=== PATIENT | male | born 1935 | race Caucasian/White ===

== ENCOUNTER 2016-07-20 06:07 | Day surgery (SDC) | payer MEDICARE, BC ==
--- NOTE | 2016-07-09 16:06 | HP ---
PREOPERATIVE HISTORY AND PHYSICAL: DATE OF PREOPERATIVE HISTORY AND PHYSICAL EXAMINATION: 07/08/16 DATE OF ADMISSION: This patient is scheduled for same-day surgery admission by Dr. العراقي on 07/20/16. ATTENDING SURGEON: Dr. Stevo العراقي (dictated by Colette Johnson NP) CHIEF COMPLAINT: Left inguinal hernia. HISTORY OF PRESENT ILLNESS: The patient is an 81-year-old male, initially evaluated by Dr. العراقي on 04/07/16 for a left inguinal hernia. He was referred by his primary care provider, Dr. Vahe Park. The patient at that time was recovering from a left hip replacement by Dr. Aguirre and was in physical therapy, and therefore, a left inguinal hernia repair was postponed. He returned for followup of the left inguinal hernia with Dr. العراقي on 05/19/16 , and now plans are made for open repair of the left inguinal hernia with mesh as a same-day surgery procedure. The patient denies any associated pain with the left inguinal hernia, he denies any urinary or gastrointestinal symptoms. He denies any signs or symptoms to suggest incarceration or strangulation. He does note a bulge in the area. Dr. العراقي discussed the nature of inguinal hernias and the nature of the surgical repair and the use of mesh, and the relevant risks, benefits, and alternatives, and today I reviewed the expected postoperative care and recovery. The patient has had a chance to ask questions and stated that he understands the information and is satisfied with the answers given to his questions. He will sign surgical consent on the day of surgery. PAST MEDICAL HISTORY: Significant for prosthetic arthroplasty of the left hip; localized osteoarthritis; sleep apnea requiring the use of CPAP; gastroesophageal reflux disease. PAST SURGICAL HISTORY: Left hip replacement in February [address] Aguirre, knee replacement many years ago, and lumbar diskectomy many years ago. MEDICATIONS: 1. Rapaflo 8 mg p.o. daily. 2. Tagamet HB 200 mg b.i.d. p.r.n. 3. Fiber supplement daily. 4. Stool softener daily. 5. Multivitamin daily. 6. Aleve 220 mg two tablets p.o. b.i.d. p.r.n. 7. Gaviscon as needed. 8. Amoxicillin 500 mg 4 pills 2 g one hour before dental or gastrointestinal procedure. ALLERGIES: No known drug allergies. FAMILY HISTORY: No known anesthesia complications, bleeding tendencies, or clotting disorders. SOCIAL HISTORY: He is and lives alone; he has never been a smoker. He drinks one alcoholic beverage per week and denies the use of other substances and exercises routinely. REVIEW OF SYSTEMS: He denies any constitutional symptoms. He denies any cardiovascular symptoms. Denies any history of deep vein thrombosis or pulmonary embolism; denies any respiratory symptoms; denies any history of anesthesia complications; he has a history of GERD which is controlled with medications currently. He denies any chronic constipation; he has frequent urination and is on medication to improve urinary flow; he has primary osteoarthritis of the pelvic region and thigh and is status post prosthetic arthroplasty of the left hip; he exercises daily at the gym and has been in physical therapy; he denies any neurologic symptoms; he denies any bleeding tendencies and does not think that he has ever received a blood transfusion. PHYSICAL EXAMINATION GENERAL SURVEY: The patient is an 81-year-old male, well developed, well nourished, in no acute distress. VITAL SIGNS: Height 70 inches, weight 207 pounds, body mass index 29.7. Blood pressure 92/60, pulse 54 and regular, respiratory rate 16, temperature 98.1 tympanic. HEENT: Benign. BACK: No CVA tenderness. NECK: Supple. No cervical lymphadenopathy. No carotid bruits. LUNGS: Breath sounds bilaterally clear and equal. HEART: Regular rate and rhythm. No murmurs or rubs appreciated. ABDOMEN: Active bowel sounds. Soft, obese, nontender, and nondistended. Palpation reveals no umbilical hernia or other masses or organomegaly. Inguinal as done by Dr. العراقي revealed a moderate reducible nontender left inguinal hernia; testes were normal on palpation without any masses. RECTAL EXAM: Deferred. EXTREMITIES: Warm. There is mild, nonpitting edema both lower extremities. No skin ulcerations. NEUROLOGIC: Alert and oriented x3. Steady gait. SKIN: Warm, dry, intact. IMPRESSION: Left inguinal hernia. PLAN: Same-day surgery admission to Dr. العراقي's service on 07/20/16 , for open repair of left inguinal hernia with mesh. COLETTE ECKENRODE, RESEARCH ANIMAL ATTENDANT CC: Dr. العراقي; Dr. Vahe Park* [id number]/[facility] #: [id number] [place]
[~2016-07-20 06:07] MED LIST: Buffered Lidocaine 1% SYR 3ML* 3 ML/SYR SYRINGE INTRADERM ONE; ceFAZolin 2 GM PREMIX (*) 2 GM/50 ML BAG IVPB ONE
[2016-07-20 06:49] VITALS: BP 125/63
[2016-07-20] MEDS ORDERED: Bupivacaine 0.5% W/EPI SDV* 30 ML VIAL ONE (07:23)
[2016-07-20] MEDS ORDERED: Lidocaine 1% INJ* 10 MG/ML 30 ML SDV ONE (07:23)
== END 2016-07-20 07:45 | disposition home or self-care (01) ==
LOC: OR 06:07
PROVIDERS: ATTEND Surgery
DX: K40.90 Unilateral inguinal hernia, without obstruction or gangrene, not specified as recurrent (principal); Z53.9 Procedure and treatment not carried out, unspecified reason
CPT/HCPCS: J0690

== ENCOUNTER 2016-12-07 06:30 | Day surgery (SDC) | payer MEDICARE, BC ==
--- NOTE | 2016-11-25 13:25 | HP ---
CC: Vahe Park MD in [place] * ADMISSION HISTORY AND PHYSICAL: DATE OF ADMISSION: 12/07/16 ATTENDING SURGEON: Dr. Stevo العراقي * (DICTATED BY JOHN PURI) CHIEF COMPLAINT: Left inguinal hernia. HISTORY OF PRESENT ILLNESS: This is an 81-year-old male who was first seen in our office in March by Dr. العراقي for evaluation of a left inguinal hernia. This had apparently been noted on routine exam, and at the time had been asymptomatic. Because of recent left hip replacement, plan for surgery was put off until July. At that time; however, he was noted to have a small cutaneous abscess in the left groin and surgery was postponed again. In regards to the hernia, he has minimal discomfort, and nothing to suggest incarceration or strangulation. He does not need to manually reduce the hernia. It has not changed particularly in size since his first evaluation. Interval history is notable for a fall about 2 weeks ago at which time he sustained fractures of 3 left ribs. He states that he is improved significantly such that he is only using Tylenol p.r.n. for rib pain. On most recent exam by Dr. العراقي on 10/06/16, there was moderate sized reducible left inguinal hernia, which was minimally tender on palpation. Dr. العراقي has discussed with him the indications for surgery, the risks, benefits, and alternatives and we again discussed today the expected perioperative course. The patient would like to proceed as scheduled with open repair left inguinal hernia with mesh. PAST MEDICAL HISTORY: Osteoarthritis (see below), obstructive sleep apnea ( typically does use CPAP though he had held that recently because of rib fractures, but he is planning to resume it prior to surgery), GERD, BPH. He denies any significant cardiovascular history, respiratory problems other than the sleep apnea, diabetes, or personal history of bleeding or clotting problems. PAST SURGICAL HISTORY: Left total hip replacement in February 2016, repair of left quadriceps injury in 2002, bilateral cataract surgery. His chart record also indicates a lumbar discectomy though that did not come up by the patient's history today. He reports no surgical or anesthesia complications. CURRENT MEDICATIONS: 1. Rapaflo 8 mg q. p.m. 2. Tylenol 650 mg 2 tablets q. 6 hours p.r.n. 3. Aleve 220 mg daily though he has put that on hold prior to surgery. 4. Tagamet HP 200 mg twice a day p.r.n. for GERD symptoms. 5. Gaviscon 4 teaspoons p.r.n. for GERD. 6. Stool softener with laxative b.i.d. p.r.n. 7. He also takes the following supplements: Vitamin D, multivitamin, fish oil , calcium with the vitamin B12. DRUG ALLERGIES: None. FAMILY HISTORY: Negative for anesthesia problems, bleeding, or clotting disorders. SOCIAL HISTORY: The patient is . He lives alone. He will have 2 of his sons staying with him during the postoperative period to assist as needed. 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 He denies use of tobacco. He drinks alcohol infrequently (less than 1 drink per day). He denies other recreational drug use. REVIEW OF SYSTEMS: General: No recent constitutional symptoms or acute illnesses, other than the recent fall with rib fractures from which he is improving, weight has been relatively stable. Cardiovascular: No chest pain or palpitations. He is seen by a cold header once yearly. There are no recent workup or interventions. He apparently has a history of mild arrhythmia ( see below for physical exam). Respiratory: JOHNATHAN as noted above. No other additional problems noted. GI: No problems reported. Colonoscopy done within the past 5 to 10 years with no significant interval history noted. : BPH. Followed by Dr. Hoff. No recent changes. No nocturia. Musculoskeletal: As above. No additions other than that he was planning to resume physical therapy for his hip when feasible. Endocrine: No diabetes or thyroid dysfunction. PHYSICAL EXAMINATION GENERAL: Well-nourished, mildly obese male in no acute distress. VITAL SIGNS: Height 70 inches, weight 209 pounds. Blood pressure 118/66, pulse 68, respirations 16. HEENT: Pupils equal, round, and reactive. EOMs intact. No conjunctival pallor. Oropharynx: Mucous membranes moist. No intraoral lesions. NECK: No lymphadenopathy, thyromegaly or masses. LUNGS: Clear to auscultation. No rales or wheezes. Left chest wall without significant tenderness or bruising. HEART: Regular rate and rhythm with occasional irregular beat or premature beat. No murmur appreciated. ABDOMEN: He has diastasis of the upper abdomen. He is mildly obese. Soft. Nontender to palpation. No palpable masses or organomegaly other than in the left groin where there is a left inguinal hernia on exam in standing position. Genitalia otherwise normal. No palpable hernia on the right. EXTREMITIES: Trace edema bilaterally with some pigmentary changes indicative of mild chronic venous stasis. I did not check his distal pulses. RECTAL: Not done. BACK: No spinous process or CVA tenderness. NEUROLOGIC: Grossly intact. SKIN: Warm and dry. No suspicious rashes or lesions. IMPRESSION: Left inguinal hernia. PLAN: Open repair of left inguinal hernia with mesh. JOHN CAPONE [id number]/[facility] #: [id number] [place]
[~2016-12-07 06:30] MED LIST changes: +Buffered Lidocaine 0.9% SYRIN* 5 ML/SYR SYRINGE INTRADERM ONE; -Buffered Lidocaine 1% SYR 3ML* 3 ML/SYR SYRINGE INTRADERM ONE; -ceFAZolin 2 GM PREMIX (*) 2 GM/50 ML BAG IVPB ONE
[2016-12-07] MEDS ORDERED: ceFAZolin 2 GM PREMIX(*) 2 GM/50 ML BAG IVPB ONE (06:45)
[2016-12-07] MEDS ORDERED: Buffered Lidocaine 0.9% SYRIN* 5 ML/SYR SYRINGE ONE (06:45)
[2016-12-07] MEDS ORDERED: Lidocaine 1% INJ* 10 MG/ML 30 ML SDV ONE (06:59)
[2016-12-07] MEDS ORDERED: Bupivacaine 0.5% W/EPI SDV* 10 ML VIAL INJ ONE (06:59)
[2016-12-07] MEDS ORDERED: Midazolam* 1 MG/ML 2 ML VIAL (2 MG) ONE (07:23)
[2016-12-07] MEDS ORDERED: KETAMINE HCL* 50 MG/ML 10 ML VIAL ONE (07:53)
[2016-12-07] MEDS ORDERED: fentaNYL* 50 MCG/ML 2 ML VIAL (100 MCG VIAL) ONE ×2 (07:53→10:36)
[2016-12-07] MEDS ORDERED: Acetaminophen TAB* 325 MG PO PRN (08:38)
[2016-12-07] MEDS ORDERED: oxyCODONE TAB* 5 MG TAB PO PRN (08:38)
[2016-12-07] MEDS ORDERED: fentaNYL* 50 MCG/ML 2 ML VIAL (100 MCG VIAL) IV PRN (08:38)
[2016-12-07] MEDS ORDERED: DiMENhydriNATE IV* 50 MG/ML VIAL IV PUSH PRN (08:38)
[2016-12-07] MEDS ORDERED: Ondansetron INJ* 2 MG/ML VIAL IV PRN (08:38)
[2016-12-07] MEDS ORDERED: PROCHLORPERAZINE INJ 5 MG/ML 2 ML VIAL IV PRN (08:38)
[2016-12-07] MEDS ORDERED: Famotidine IV* 10 MG/ML 2 ML (20 mg) ONE (09:19)
[2016-12-07] MEDS ORDERED: Lidocaine 2% PF * 5 ML VIAL ONE (09:19)
[2016-12-07] MEDS ORDERED: Dexamethasone IV* 4 MG/ML 1 ML (4 MG) ONE (09:19)
[2016-12-07] MEDS ORDERED: Ketorolac INJ* 30 MG/ML 1 ML VIAL ONE (09:19)
[2016-12-07] MEDS ORDERED: Propofol* 10 MG/ML 20 ML BTL IV PUSH ONE (09:19)
[2016-12-07] MEDS ORDERED: oxyCODONE/Acetamin 5/325 MG* TAB PO PRN (10:19)
[2016-12-07] MEDS ORDERED: Acetaminophen TAB* 325 MG ONE (10:37)
[2016-12-07 12:21] VITALS: BP 117/73
--- NOTE | 2016-12-08 17:07 | OP ---
DATE OF OPERATION: 12/07/16 [facility] DATE OF : 35 SURGEON: Stevo العراقي MD ASSISTANTS: Isac Samayoa MD and JOHN Chavez ANESTHESIOLOGIST: Dr. Evans ANESTHESIA: General with local. PRE-OP DIAGNOSIS: Left inguinal hernia. POST-OP DIAGNOSIS: Large left direct inguinal hernia. OPERATIVE PROCEDURE: Open repair with an extended-sized Prolene Hernia System mesh by [employer]. ESTIMATED BLOOD LOSS: Minimal. SPECIMENS: None. WOUND CLASSIFICATION: I. COMPLICATIONS: None. DRAINS: None. FINDINGS: The patient has a rather large direct space hernia. DESCRIPTION OF PROCEDURE: Written informed consent was obtained and the left groin was marked with indelible ink and preoperative antibiotics were administered. The patient was taken to the operating room and placed in the supine position. Sequential compression devices and warming blanket were applied. General anesthesia was administered. The left lower abdomen and left groin were prepped and draped in the usual sterile fashion. Time-out verification was completed. Next, 0.25% Marcaine mixed with 1% lidocaine was infiltrated in the left groin and an oblique incision was made several fingerbreadths above the inguinal crease, carried down through the Collins's fascia. The external oblique aponeurosis was identified and opened in the direction of its fibers to expose the underlying spermatic cord. Also noted in the floor was a rather large protuberance consistent with a hernia. The spermatic cord and this hernia were then encircled with a one- quarter inch Jorge drain in the pubic tubercle. With care, we were able to separate out the hernia sac from the spermatic cord with care to prevent injury to the vas deferens and other vital structures and the cord. This hernia was a large direct space hernia, there was really no floor or integrity to the entire direct space. There was a lipoma of the cord, which I did excise up into the internal ring. The internal ring was of normal size without evidence of an indirect hernia sac identified. Next, the transversalis fascia was divided circumferentially along the bases of the hernia sac. This was scored along the conjoint tendon and the inguinal ligament inferiorly. I was able to identify the epigastric vessels and these were kept anteriorly. We developed a preperitoneal space under the conjoint tendon and exposed Darwin's ligament and the pubic tubercle as well as more inferiorly and laterally in preparation for mesh placement. Once this was complete, we placed the extended Prolene Hernia System posterior leaflet into the preperitoneal space and sutured to the pubic tubercle, Darwin' s ligament, and the conjoint tendon into the retroperitoneal space. We were able to extend this out laterally posterior to the epigastric vessels so it covered the space nicely. The anterior leaflet was then sutured to the pubic tubercle, the conjoint tendon as well as the inguinal ligament inferiorly with interrupted 0 Polysorb suture. A slit was made in the lateral aspect of the anterior leaflet and spread to permit the spermatic cord and the tails were crossed laterally and sutured to the underlying musculature with a horizontal mattress suture of 0 Polysorb suture. The mesh sat nicely and there was no tension and covered the direct spaces well. Hemostasis was assured. Additional Marcaine was infiltrated. The external oblique aponeurosis was closed with running 3-0 Polysorb suture. The Collins's fascia was closed with interrupted 3-0 Polysorb suture. The skin was approximated with subcuticular 4-0 Polysorb suture. Steri-Strips and sterile dressings were applied. The patient tolerated the procedure well and was taken to the recovery room in stable condition. [id number]/[facility] #: [id number] [place]
== END 2016-12-07 12:22 | disposition home or self-care (01) ==
LOC: OR 06:30
PROVIDERS: ATTEND Surgery
DX: K40.90 Unilateral inguinal hernia, without obstruction or gangrene, not specified as recurrent (principal); D17.6 Benign lipomatous neoplasm of spermatic cord; G47.33 Obstructive sleep apnea (adult) (pediatric); K21.9 Gastro-esophageal reflux disease without esophagitis; M19.90 Unspecified osteoarthritis, unspecified site; N40.0 Benign prostatic hyperplasia without lower urinary tract symptoms
CPT/HCPCS: A9270-GY; C1781; J0690; J1100; J1885; J2001; J2250; J2704; J3010

== ENCOUNTER 2017-12-14 07:30 | Inpatient (IN) | payer MEDICARE, BC ==
--- NOTE | 2017-12-04 09:52 | HP ---
AMENDED REPORT NOW INCLUDES COSIGNER DESIGNATION - ESIGNED BEFORE ADJUSTMENT HISTORY AND PHYSICAL: DATE OF ADMISSION/SURGERY: 12/14/17 DATE OF OFFICE VISIT: 12/01/17 ATTENDING SURGEON: Luisa Aguirre MD* (DICTATED BY JOHN DELGADO) PROCEDURE: Right total knee arthroplasty. CHIEF COMPLAINT: Right knee pain. HISTORY OF PRESENT ILLNESS: Mr. Hargrove is an 82-year-old gentleman with end- stage osteoarthritis of his right knee. He has failed conservative treatment, elected to proceed with a right total knee arthroplasty, which is scheduled for 12/14/17. PAST MEDICAL HISTORY: BPH and sleep apnea. PAST SURGICAL HISTORY: Left total hip arthroplasty and hernia repair. CURRENT MEDICATIONS: 1. Rapaflo 8 mg daily. 2. Fiber complete. 3. Vitamin D. 4. Multivitamin. 5. Fish Oil. 6. [place] as needed. 7. Tagamet 200 mg twice a day as needed. 8. Gaviscon. 9. Calcium with vitamin D. 10. Stool softener. 11. MiraLAX 12. Tylenol. ALLERGIES: No known drug allergies. FAMILY HISTORY: Cancer. SOCIAL HISTORY: This 82-year-old gentleman lives alone. He does not smoke or use drugs. Uses alcohol rarely. REVIEW OF SYSTEMS: A complete 14-point review of systems was reviewed with the patient, it was negative for DVT, PE, hepatitis, HIV, or anesthesia problems. PHYSICAL EXAMINATION GENERAL: He is well developed, well nourished, in no acute distress. VITAL SIGNS: He stands 70 inches tall, weighs 224 pounds, blood pressure 122/62 , his heart rate is 56. HEENT: Normocephalic, atraumatic. NECK: Supple. No palpable lymph nodes. PULMONARY: Lungs are clear to auscultation bilaterally. CARDIO: Regular rate and rhythm. Strong S1 and S2. ABDOMEN: Soft, nontender, nondistended. MUSCULOSKELETAL: Right lower extremity: Skin is intact. There are no open wounds or abrasions. There is a moderate joint effusion. He has some tenderness over the medial and lateral joint line. Range of motion is 10 to 120 degrees of flexion with significant patellofemoral crepitus. 2+ dorsalis pedis pulses. Intact sensation. His lower extremity muscle group strengths are intact at 5/5. NEUROLOGIC: He is alert and oriented x3. ASSESSMENT AND PLAN: Mr. Hargrove is an 82-year-old gentleman with end-stage osteoarthritis of his right knee. He has failed conservative treatment and elected to proceed with a right total knee arthroplasty, which is scheduled for 12/14/[address] Aguirre discussed the risks and benefits of the surgery at today's visit and all of his questions were answered. He will follow up with Dr. Aguirre 2 weeks after the surgery. JOHN DELGADO [id number]/[facility] #: [id number] [place]
[~2017-12-14 07:30] MED LIST changes: +Acetaminophen TAB* 325 MG PO ONE; +Famotidine IV* 10 MG/ML 2 ML (20 mg) IV ONE; +Gabapentin CAP(*) 300 MG PO ONE; +Metoclopramide TAB* 10 MG PO ONE
[2017-12-14] MEDS ORDERED: Gabapentin CAP(*) 300 MG ONE (09:55)
[2017-12-14] MEDS ORDERED: Famotidine IV* 10 MG/ML 2 ML (20 mg) ONE (09:55)
[2017-12-14] MEDS ORDERED: Acetaminophen TAB* 325 MG ONE (09:56)
[2017-12-14] MEDS ORDERED: ceFAZolin 2 GM PREMIX (*) 2 GM/50 ML BAG IVPB ONE (09:56)
[2017-12-14] MEDS ORDERED: Metoclopramide TAB* 10 MG ONE (09:56)
[2017-12-14] MEDS ORDERED: KETAMINE HCL* 50 MG/ML 10 ML VIAL ONE (10:17)
[2017-12-14] MEDS ORDERED: fentaNYL* 50 MCG/ML 2 ML VIAL (100 MCG VIAL) ONE (10:17)
[2017-12-14] MEDS ORDERED: Ondansetron INJ* 2 MG/ML VIAL ONE (10:17)
[2017-12-14] MEDS ORDERED: Lidocaine 2% PF * 5 ML VIAL ONE ×3 (10:17→12:33)
[2017-12-14] MEDS ORDERED: Propofol* 10 MG/ML 20 ML BTL IV PUSH ONE ×2 (10:17→13:02)
[2017-12-14] MEDS ORDERED: Dexamethasone IV* 4 MG/ML 1 ML (4 MG) ONE (10:17)
[2017-12-14] MEDS ORDERED: Midazolam* 1 MG/ML 5 ML VIAL (5 MG) ONE (10:18)
[2017-12-14] MEDS ORDERED: Tranexamic Acid 1,000 MG/10 ML 1,000 MG in NS 0.9% 100 ML* 100 ML IV ONE (10:30)
[2017-12-14] MEDS ORDERED: Bupivacaine 0.5% PF 10 ML VIAL INJ ONE ×2 (11:59→12:00)
[2017-12-14] MEDS ORDERED: ROPIVACAINE 5 MG/ML 30 ML BTL (0.5%) ONE (12:00)
[2017-12-14] MEDS ORDERED: Naloxone* 0.4 MG/ML 1 ML VIAL IV PRN (13:58)
[2017-12-14] MEDS ORDERED: Ondansetron INJ* 2 MG/ML VIAL IV PRN ×2 (13:58→15:19)
[2017-12-14] MEDS ORDERED: Ketorolac INJ* 30 MG/ML 1 ML VIAL ONE (13:58)
[2017-12-14] MEDS ORDERED: HYDROmorphone INJ* 0.5 MG/0.5 ML SYRINGE IV PRN (13:58)
[2017-12-14] MEDS ORDERED: fentaNYL* 50 MCG/ML 2 ML VIAL (100 MCG VIAL) IV PRN (13:58)
[2017-12-14] MEDS ORDERED: Bisacodyl SUPP* 10 MG SUPP PR PRN (15:19)
[2017-12-14] MEDS ORDERED: Magnesium Hydroxide LIQ* 30 ML UDC PO PRN (15:19)
[2017-12-14] MEDS ORDERED: diPHENhydraMINE IV* 50 MG/ML 1 ml VIAL (BENADRYL) IV PRN (15:19)
[2017-12-14] MEDS ORDERED: Morphine INJ* 2 MG/ML 1 ML SYRINGE (TWO MG - NEW SYRINGE VERSION) IV PRN (15:19)
[2017-12-14] MEDS ORDERED: CIMETIDINE 400 MG PO PRN (15:22)
--- NOTE | 2017-12-14 15:55 | RAD ---
Indication: Right total knee replacement. 2 views of the right knee demonstrates bipolar right knee replacement in satisfactory position. No evidence of periprosthetic fracture or loosening is noted. IMPRESSION: Right knee replacement in satisfactory position.
--- NOTE | 2017-12-14 16:57 | PN ---
Progress Note - Progress Note Date of Service: 12/14/17 Note: Patient seen in recovery room. Reports no pain. Able to dorsi flex/plantar flex. Dressing dry/intact. 2+DP pulse
[2017-12-14] MEDS ORDERED: Warfarin TAB(*) 6 MG PO ONE (17:00)
[2017-12-14] MEDS: Acetaminophen TAB* 325 MG PO SCH (17:35)
[2017-12-14] MEDS ORDERED: Finasteride TAB* 5 MG PO SCH (18:00)
[2017-12-14] MEDS: SILODOSIN 8 MG PO SCH (19:28)
[2017-12-14] MEDS: Magnesium Hydroxide LIQ* 30 ML UDC PO SCH (21:07)
[2017-12-14] MEDS: Docusate CAP* 100 MG PO SCH (21:07)
[2017-12-14] MEDS: ceFAZolin 1 GM in Dextrose (*) 1 GM/50 ML BAG IVPB SCH (21:08)
--- NOTE | 2017-12-14 21:36 | CONS ---
CC: Dr. Aguirre; Dr. Park * CONSULTATION REPORT: DATE OF CONSULT: 12/14/17 PRIMARY CARE PROVIDER: Dr. Park. ATTENDING PHYSICIAN WHILE IN THE HOSPITAL: Lizabeth Kirkland DO (report being dictated by Lars Skaggs NP). REQUESTING PHYSICIAN FOR CONSULT: Dr. Aguirre. REASON FOR MEDICAL CONSULTATION: Medical management of comorbid medical conditions. HISTORY OF PRESENT ILLNESS: I refer you to Dr. Aguirre's H and P for further details. In short, Mr. Hargrove is an 82-year-old male patient. He has a known history of right bundle branch block, bradycardia. His average heart rate based on Holter monitor with his music agent was 55 and when he had the Holter his heart rate did drop as low as 31 and it got as high as 93. The patient is coming in today with complaints of right knee pain. He has been failing conservative therapy and he underwent a right total knee arthroplasty today. He also carries a history of sleep apnea. He carries a history of neuropathy, arthritis. 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 Margie Agrawal for that. He was evaluated in the PACU. He says he just feels tired. He denies any chest pain or shortness of breath. He says he does not feel lightheaded. He clearly states to me that he has a known history of low heart rate and his son also corroborates this story. He denies having any abdominal pain. He denies feeling nauseated. He denies any vomiting. He says that he is feeling well, just tired. He says he cannot feel his lower extremities yet because he did have a spinal anesthesia for the case. He states that his pain is well controlled. Because of his medical complexity , we were asked to evaluate in consult. PAST MEDICAL HISTORY: Significant for: 1. BPH. 2. JOHNATHAN. 3. Neuropathy of the right lower extremity. 4. Arthritis. 5. Right bundle branch block. 6. History of bradycardia. 7. Thoracic aortic aneurysm. PAST SURGICAL HISTORY: He has had a left total hip replacement. He has had a hernia repair. He has had quadriceps repair. He has had tonsillectomy. He has had left knee arthroscopy and he has had a right total knee replacement done today. MEDICATIONS: The home meds according to the list that was provided include: 1. Rapaflo 8 mg p.o. at bedtime. 2. Multivitamin 1 capsule at bedtime. 3. Fiber 2 capsules at bedtime. 4. Calcium with vitamin D 1 tablet at bedtime. 5. Proscar 5 mg at bedtime. 6. Colace 100 mg p.o. b.i.d. 7. Vitamin D3 one capsule at bedtime. 8. Tylenol 1 tablet every 4 hours as needed. 9. Gaviscon 4 teaspoons p.o. 4 times a day as needed. 10. Sinemet 400 mg p.o. b.i.d. as needed. 11. Naproxen 1 tablet p.o. daily as needed. 12. Aspirin 1 to 2 tablets p.o. every 4 hours as needed. 13. Laxative 1 dose p.o. at bedtime as needed. 14. Fish oil 1 capsule p.o. q.p.m. as needed. ALLERGIES TO MEDICATIONS: Include no known drug allergies. FAMILY HISTORY: His father had a history of dementia. He says his mother of old age. SOCIAL HISTORY: He does not smoke. He does not drink. Surrogate decision maker is his son. REVIEW OF SYSTEMS: There is no documented fever. He denies having any significant weight change. He denies having any double vision. There is no ear discharge. He is denying having any rhinorrhea. There was no sore throat. There is no thyroid enlargement. Denies having any chest pain. There is no orthopnea. He denies having any nocturnal dyspnea. There was no abdominal pain. There is no nausea. There was no vomiting. There was no dysuria. There was no frequency. There was no seizure, no loss of consciousness. No pruritus and no skin ulcerations. Review of 14 systems was completed, all others negative. PHYSICAL EXAM: Blood pressure 131/71 with pulse of 42, respirations 15, O2 sat 98%, temperature of 96.8. General: At this time, Mr. Hargrove is an 82-year-old male patient. He is sitting in the PACU stretcher. He appears to be well nourished and well developed. HEENT: Head: Atraumatic and normocephalic. Eyes: EOMs are intact. Sclerae anicteric and not pale. Throat: Oral mucosa appears to be moist. No oropharyngeal erythema. Neck was supple. Heart: Sounds S1, S2. He is bradycardic, but no murmurs, rubs, or gallops. Lungs were clear to auscultation bilaterally. There were no wheezes, rales, or rhonchi. Abdomen was soft. It was flat. It was nontender. Bowel sounds hypoactive. Extremities: He had pulses 2+ to the lower extremities. He has no plantar or dorsiflexion just yet given the spinal. Sensation is not intact yet, but he had good cap refill. Neurologically, he is awake, he is alert, he is oriented x3. His speech was clear. His tongue is midline. No gross focal deficits. Skin: Intact with the exception that he has an incision to the right knee, which is covered with an Aleksander dressing. DIAGNOSTIC STUDIES/LAB DATA: His labs which are preop: Urine culture was negative. INR of 0.96, PTT of 31.4. Urine obtained does show it is negative. His UA is negative. WBC was 5.4, RBC of 4.33, hemoglobin 12.9, hematocrit of 39.5, platelets were 207,000. His albumin was 3.1. Glucose was 93, BUN 14, creatinine 0.9, sodium 144, potassium 4.3, chloride 110, bicarb 28, calcium was 8.3. Preop chest x-ray showed mild cardiomegaly unchanged. Findings consistent with COPD. No evidence for acute findings. Preop EKG shows sinus bradycardia, rate of 43 with a right bundle branch block. No ST elevations or T-wave inversions were noted. Old medical records were reviewed. ASSESSMENT AND PLAN: Mr. Hargrove is an 82-year-old male patient coming into Dr. Aguirre's service today for an elective right total knee. We were asked to evaluate in consult. Recommendations at this point are: 1. Status post right total knee. I will defer the management to Dr. Aguirre and her team. 2. Benign prostatic hypertrophy. Continue meds as prescribed. 3. Obstructive sleep apnea. Continue with the CPAP, which has been ordered by the primary team. 4. Neuropathy. Follow up with PCP. 5. Arthritis. P.r.n. Tylenol has been ordered and pain meds. 6. History of bradycardia with right bundle branch block. I will get a baseline EKG here in the ED, but he is asymptomatic. He has had recent workup with Cardiology. He is asymptomatic. We will just continue to monitor this. 7. History of aortic aneurysm. Follow up with his PCP. 8. DVT prophylaxis: Per the primary team. 9. Fluids, electrolytes and nutrition: I would recommend a regular diet. 10. Code status: Full code. TIME SPENT: Time spent on consult was 60 minutes, greater than half the time was spent [id number] with the patient obtaining my history and physical, other half time was spent going over the plan of care with the patient and implementing plan of care. I discussed the plan of care with my attending, Dr. Kirkland, she is in agreement. [place] SKAGGS, DOT [id number]/[facility] #: [id number] [place]
[2017-12-14] MEDS: oxyCODONE TAB* 5 MG TAB PO PRN (22:53)
[2017-12-15] MEDS: Acetaminophen TAB* 325 MG PO SCH ×4 (00:25→23:31)
[2017-12-15] MEDS: ceFAZolin 1 GM in Dextrose (*) 1 GM/50 ML BAG IVPB SCH ×2 (05:14→13:11)
[2017-12-15] MEDS: oxyCODONE TAB* 5 MG TAB PO PRN (05:15)
[2017-12-15 06:12] LABS: Hematocrit 33 % (42-52); Hemoglobin 11.9 g/dl (14.0-18.0); Mean Platelet Volume 8.4 um3 (7.4-10.4); Platelet Count 184 10^3/ul (150-450)
[2017-12-15 06:22] LABS: EGFR Non-African American 93.9 (>60); INR 0.98 (0.77-1.02)
[2017-12-15] MEDS: Magnesium Hydroxide LIQ* 30 ML UDC PO SCH ×2 (07:23→21:12)
[2017-12-15] MEDS: Cyclobenzaprine TAB* 10 MG PO PRN ×2 (07:23→16:23)
[2017-12-15] MEDS: oxyCODONE/Acetamin 5/325 MG* TAB PO PRN ×4 (07:24→23:28)
[2017-12-15] MEDS: Docusate CAP* 100 MG PO SCH ×2 (07:24→21:13)
[2017-12-15] MEDS: Vitamin THERAPEUTIC TAB PO SCH (07:24)
--- NOTE | 2017-12-15 09:15 | PN ---
Progress Note - Progress Note Date of Service: 12/15/17 SOAP: Subjective: []Patient seen at bedside. He feels very well and is eager to participate in physical therapy. His right knee pain is well controlled. Denies chest pain, shortness of breath, dizziness, nausea or leg numbness. Objective: []General: Well appearing, NAD RLE: Right knee dressing CDI without surrounding erythema. Sensation intact to light touch distally. DF/PF intact. BL LE calves supple and nontender without erythema, edema or palpable cords. Assessment: []POD 1 sp right total knee arthroplasty Plan: []WBAT PT/OT Lovenox, coumadin 8 mg today Vital Signs Temp 97.6 F 12/15/17 07:38 Pulse 58 12/15/17 07:43 Resp 18 12/15/17 07:40 BP 106/57 12/15/17 07:38 Pulse Ox 98 12/15/17 07:38 Intake & Output 12/14/17 12/15/17 12/15/17 18:59 06:59 18:59 Intake Total 6469 954 9388 Output Total 225 2300 Balance 1595 -1740 2160 Weight 221 lb 12.8 oz Intake: IV Fluids 1700 980 LR 1700 980 IVPB 100 LR 100 Oral 313 410 8778 Output: Murguia 225 2300 Other: # Bowel Movements 0 Laboratory Last Values Hgb 11.9 g/dl (14.0-18.0) L 12/15/17 05:49 Hct 33 % (42-52) L 12/15/17 05:49 Plt Count 184 10^3/ul (150-450) 12/15/17 05:49 MPV 8.4 um3 (7.4-10.4) 12/15/17 05:49 INR (Anticoag Therapy) 0.98 (0.77-1.02) 12/15/17 05:55 Sodium 138 mmol/L (135-145) 12/15/17 05:55 Potassium 4.1 mmol/L (3.5-5.0) 12/15/17 05:55 Chloride 106 mmol/L (101-111) 12/15/17 05:55 Carbon Dioxide 28 mmol/L (22-32) 12/15/17 05:55 Anion Gap 4 mmol/L (2-11) 12/15/17 05:55 BUN 17 mg/dL (6-24) 12/15/17 05:55 Creatinine 0.79 mg/dL (0.67-1.17) 12/15/17 05:55 Est GFR ( Amer) 113.6 (>60) 12/15/17 05:55 Est GFR (Non-Af Amer) 93.9 (>60) 12/15/17 05:55 BUN/Creatinine Ratio 21.5 (8-20) H 12/15/17 05:55 Glucose 121 mg/dL (70-100) H 12/15/17 05:55 Calcium 8.3 mg/dL (8.6-10.3) L 12/15/17 05:55
--- NOTE | 2017-12-15 11:05 | OP ---
DATE OF OPERATION: 12/14/17 - ROOM #332 DATE OF : 35 ATTENDING SURGEON: Luisa Aguirre MD COMPRESSOR SERVICE TECHNICIAN: JOHN Lopez. Mr. Cade did help throughout the procedure with preparation of the leg, wound retraction, manipulation of the knee, and wound closure. ANESTHESIOLOGIST: Dr. Copeland. ANESTHESIA: Spinal. PRE-OP DIAGNOSIS: Severe end-stage degenerative osteoarthritis of the right knee joint. POST-OP DIAGNOSIS: Severe end-stage degenerative osteoarthritis of the right knee joint. OPERATIVE PROCEDURE: Right total knee arthroplasty. TOURNIQUET TIME: 51 minutes. COMPLICATIONS: None. ESTIMATED BLOOD LOSS: 200 cc. SPECIMENS: Bone and cartilage from the right knee joint sent to Pathology. HARDWARE USE: This is Cemented Vallada[employer] Nephew total knee arthroplasty hardware. Two packages of Simplex bone cement were used. For the femur, a size 5 right posterior stabilized Legion femoral component. For the tibia, a size 5 right Marianna II tibial base plate. For the insert, a 9-mm, posterior stabilized articular insert size 5/6. For the patella, a 32-mm 3-peg all poly patella with 7.5 thickness. BRIEF HISTORY/INDICATION: Mr. Hargrove is an 82-year-old gentleman reviewed with increasingly severe right knee pain. He failed conservative treatment with anti - inflammatories, physical therapy, brace wear, and intraarticular injections. Due to continued pain and decreased quality of life, he elected to undergo right total knee arthroplasty. He was noted to have end-stage arthritis of the right knee on x- ray with severe [id number] contact in patellofemoral compartment and resulting patellar deformation. Informed consent was obtained from the patient. He understood the risks of surgery included but were not limited to bleeding, infection, damage to nearby structures, continued pain, need for further surgery, intraoperative fracture, nerve palsy, hardware failure or loosening, knee stiffness, loss of motion, stroke, heart attack, blood clot, and . He wished to proceed. INTRAOPERATIVE FINDINGS: Intraoperatively, the patient was noted to have tricompartmental full thickness loss of cartilage. He has extensive osteophyte formation. The patella and femur had bony deformation from chronic wear. DESCRIPTION OF PROCEDURE: Mr. Hargrove was identified in the preanesthesia unit. His right lower extremity was marked as the correct operative site. Informed consent was signed and placed in the chart. The patient was taken to the operating room and placed under spinal anesthesia without difficulty. Murguia catheter was placed. Tourniquet was placed on the right thigh. Right lower extremity was prepped and draped in the usual sterile fashion. Preop time-out was made to correctly identify the patient's side and site. Appropriate perioperative antibiotics were given within 1 hour of incision. Tourniquet was inflated until the tourniquet time for this procedure was 51 minutes. A midline incision was made with a 10-blade and carried down to the extensor mechanism. A new 10-blade was used to make a standard medial parapatellar arthrotomy. The patella was subluxed laterally. Electrocautery was used to subperiosteally elevate the soft tissue off the superomedial tibia to the mid sagittal plane. The knee was flexed up. The anterior horn of the lateral meniscus and ACL were sharply released. A drill was used to enter the distal femur. Intramedullary distal femoral cutting guide was pinned on the distal femur. Oscillating saw was used to make the distal femoral cut. Next, the external rotation guide was pinned on the distal femur and the distal femur was sized to a size 5. Size 5 multi-cutting jig was pinned on the distal femur. Oscillating saw used to make the appropriate 4 chamfer cuts. The tibia was subluxed anteriorly and PCL was completely released. Extramedullary tibial cutting guide was pinned on the proximal tibia. Oscillating saw was used to make the proximal tibial cut perpendicular to the mechanical access of the tibia. The bone was carefully removed. The knee was brought out into full extension. The spacer block had good fit with the knee in full extension. The medial and lateral ligaments were well balanced. Flexion and extension gaps were well balanced. The knee was flexed up. Lamina press officer was placed both medially and laterally. Any remaining meniscus was carefully removed using electrocautery. Curved osteotome was used to remove any posterior osteophytes. Tibial tray and drop d[place] confirmed a satisfactory tibial cut. Size 5 right femoral trial was impacted on to the distal femur and had excellent fit. The box for the posterior stabilized implant was prepared using a reamer and box cut osteotome. Size 5 tibial tray trial with a 9-mm insert trial was placed and the knee was taken through a range of motion. The knee had full extension to 130 degrees of flexion. There was satisfactory patellofemoral tracking. The patella was everted. A 7-mm of patellar bone and cartilage was carefully removed using an oscillating saw. The patella was sized to a size 32. Three peg holes were drilled through the size 32 guide. A 32 trial patella with 7.5 thickness was placed and the knee was taken through a range of motion. There was satisfactory patellofemoral tracking. All trials were carefully removed. The tibia was subluxed anteriorly. Tibia was sized to a size 5. Proximal tibia was prepared using a size 5 keel punch. All bony cut surfaces were copiously irrigated with sterile saline and dried. The final implants were cemented into place starting with the tibia followed by the femur and last the patella. A 9-mm insert trial was placed and the knee was brought out into full extension. Tourniquet was turned down at 51 minutes. The knee was copiously irrigated with sterile saline. Electrocautery was used to obtain meticulous hemostasis. Once the cement had fully cured, the insert trial was removed. Any excess cement from the capsular and hardware was carefully removed. Final insert chosen was a 9-mm posterior stabilized Genisis II articular insert size 5 /6. This was locked into position on the tibial tray. Stability of the insert was checked and rechecked and noted to be stable. The knee was copiously irrigated with sterile saline once again. The extensor mechanism was closed using interrupted #1 Vicryl. The rest of the incision was closed in a layered fashion using 0 and 2-0 Vicryls. Skin was closed using running 3-0 nylon suture. Sterile Xeroform, 4x4s, and Webril used to covered the incision. Aleksander wrap and cold pack were placed over this. The patient's anesthesia was reversed without difficulty. He was taken to the PACU in stable condition. Intended weightbearing will be weightbearing as tolerated. Intended DVT prophylaxis will be Coumadin with a Lovenox bridge. [id number]/[facility] #: [id number] [place]
[2017-12-15] MEDS: Enoxaparin(*) 30 MG/0.3 ML SYR SUBCUT SCH (13:11)
[2017-12-15] MEDS: FINASTERIDE 5 MG PO SCH (17:18)
[2017-12-15] MEDS: SILODOSIN 8 MG PO SCH (17:18)
[2017-12-16 06:14] LABS: Hematocrit 32 % (42-52); Hemoglobin 10.8 g/dl (14.0-18.0); Mean Platelet Volume 8.6 um3 (7.4-10.4); Platelet Count 167 10^3/ul (150-450)
[2017-12-16 06:23] LABS: INR 1.21 (0.77-1.02)
[2017-12-16] MEDS: Acetaminophen TAB* 325 MG PO SCH ×2 (08:08→17:25)
[2017-12-16] MEDS: Magnesium Hydroxide LIQ* 30 ML UDC PO SCH ×2 (08:09→19:58)
[2017-12-16] MEDS: Vitamin THERAPEUTIC TAB PO SCH (08:09)
[2017-12-16] MEDS: oxyCODONE TAB* 5 MG TAB PO PRN (08:39)
[2017-12-16] MEDS: Docusate CAP* 100 MG PO SCH ×2 (09:27→22:15)
--- NOTE | 2017-12-16 10:22 | PN ---
Progress Note - Progress Note Date of Service: 12/16/17 SOAP: Subjective: [] Patient seen at bedside. He is feeling tired today with no chest pain, shortness of breath, dizziness or nausea. He is having more right knee pain than yesterday but still reports pain as tolerable. Objective: []General: Well appearing, NAD RLE: Right knee dressing changed, incision CDI without surrounding erythema. Sensation intact to light touch distally. DF/PF intact. BL LE calves supple and nontender without erythema, edema or palpable cords. Assessment: []POD 2 sp right total knee arthroplasty Plan: []WBAT PT/OT Lovenox, coumadin 6 mg today Home tomorrow Vital Signs Temp 99.8 F 12/16/17 07:36 Pulse 63 12/16/17 07:36 Resp 18 12/16/17 08:39 BP 131/64 12/16/17 07:36 Pulse Ox 94 12/16/17 07:36 Intake & Output 12/15/17 12/16/17 12/16/17 18:59 06:59 18:59 Intake Total 3110 560 120 Output Total 405 831 2947 Balance 2485 60 -1080 Intake: IV Fluids 1010 LR 1010 IVPB 160 LR 160 Oral 1940 560 120 Output: Urine 815 084 1158 Laboratory Last Values Hgb 10.8 g/dl (14.0-18.0) L 12/16/17 05:40 Hct 32 % (42-52) L 12/16/17 05:40 Plt Count 167 10^3/ul (150-450) 12/16/17 05:40 MPV 8.6 um3 (7.4-10.4) 12/16/17 05:40 INR (Anticoag Therapy) 1.21 (0.77-1.02) H 12/16/17 05:40 Sodium 138 mmol/L (135-145) 12/15/17 05:55 Potassium 4.1 mmol/L (3.5-5.0) 12/15/17 05:55 Chloride 106 mmol/L (101-111) 12/15/17 05:55 Carbon Dioxide 28 mmol/L (22-32) 12/15/17 05:55 Anion Gap 4 mmol/L (2-11) 12/15/17 05:55 BUN 17 mg/dL (6-24) 12/15/17 05:55 Creatinine 0.79 mg/dL (0.67-1.17) 12/15/17 05:55 Est GFR ( Amer) 113.6 (>60) 12/15/17 05:55 Est GFR (Non-Af Amer) 93.9 (>60) 12/15/17 05:55 BUN/Creatinine Ratio 21.5 (8-20) H 12/15/17 05:55 Glucose 121 mg/dL (70-100) H 12/15/17 05:55 Calcium 8.3 mg/dL (8.6-10.3) L 12/15/17 05:55
[2017-12-16] MEDS: Enoxaparin(*) 30 MG/0.3 ML SYR SUBCUT SCH (12:57)
[2017-12-16] MEDS: oxyCODONE/Acetamin 5/325 MG* TAB PO PRN ×3 (13:01→22:15)
[2017-12-16] MEDS ORDERED: Warfarin TAB(*) 6 MG PO SCH (17:00)
[2017-12-16] MEDS: SILODOSIN 8 MG PO SCH (18:30)
[2017-12-16] MEDS: FINASTERIDE 5 MG PO SCH (18:31)
[2017-12-17] MEDS: Acetaminophen TAB* 325 MG PO SCH ×2 (00:35→08:21)
[2017-12-17] MEDS: oxyCODONE/Acetamin 5/325 MG* TAB PO PRN ×2 (03:50→08:29)
[2017-12-17 06:35] LABS: INR 1.2 (0.77-1.02)
[2017-12-17 06:36] LABS: Hematocrit 31 % (42-52); Hemoglobin 10.7 g/dl (14.0-18.0); Mean Platelet Volume 8.4 um3 (7.4-10.4); Platelet Count 166 10^3/ul (150-450)
[2017-12-17] MEDS: Vitamin THERAPEUTIC TAB PO SCH (08:29)
[2017-12-17] MEDS: Docusate CAP* 100 MG PO SCH (08:29)
--- NOTE | 2017-12-17 09:24 | PN ---
Progress Note - Progress Note Date of Service: 12/17/17 SOAP: Subjective: Patient seen at bedside. He is feeling tired today with no chest pain, shortness of breath, dizziness or nausea. He is states right knee pain is a 4 - 5 out of 10 when he has knee pain. States that PT is going very well. Objective: General: Well appearing, NAD RLE: Right knee dressing CDI. Sensation intact to light touch distally. DF/PF intact. BL LE calves supple and nontender without erythema, edema or palpable cords. Vital Signs Temp 100.3 F 12/17/17 08:18 Pulse 58 12/17/17 08:18 Resp 18 12/17/17 08:29 BP 126/66 12/17/17 08:18 Pulse Ox 98 12/17/17 08:18 Intake & Output 12/16/17 12/17/17 12/17/17 18:59 06:59 18:59 Intake Total 600 2080 240 Output Total 1900 1100 400 Balance -1300 980 -160 Intake: Oral 600 2080 240 Output: Urine 1900 1100 400 Other: Estimated Void Large # Voids 1 Assessment: POD 3 sp right total knee arthroplasty Plan: DC home today WBAT PT/OT coumadin 10 mg today Sat 6mg Sun 8mg Recheck on wednesday
[2017-12-17] MEDS: Magnesium Hydroxide LIQ* 30 ML UDC PO SCH (09:26)
[2017-12-17] MEDS: Enoxaparin(*) 30 MG/0.3 ML SYR SUBCUT SCH (11:34)
[2017-12-17] MEDS: oxyCODONE TAB* 5 MG TAB PO PRN (12:08)
[2017-12-17 12:16] VITALS: BP 109/61
--- NOTE | 2017-12-18 02:37 | DS ---
DISCHARGE SUMMARY: DATE OF ADMISSION: 12/14/17 DATE OF DISCHARGE: 12/17/17 PROVIDER: Luisa Aguirre MD* (dictated by JOHN Dobson). ADMITTING DIAGNOSIS: Right total knee arthroplasty. CONSULTATIONS: PT and OT. HISTORY OF PRESENT ILLNESS: Mr. Hargrove is an 82-year-old male with end-stage osteoarthritis of his right knee. He failed conservative treatment and elected to proceed with a right total knee arthroplasty, which was performed on by Dr. Luisa Aguirre. HOSPITAL COURSE: The patient was admitted to [facility] on 12/14/17 and underwent a right total knee arthroplasty with no complications. The patient recovered briefly in the postanesthesia care unit and was then transferred to the short stay surgical unit in stable condition. On postop day #1, the patient's H and H was 11.9 and 33, INR was 0.8 after 6 mg of Coumadin the night before. Dressing was clean, dry, and intact. Extremity was neurovascularly intact. He could dorsiflex and plantarflex with good strength. The patient was able to get out of bed for physical therapy. Pain was controlled with oral pain medication. On postop day #2, the urinary catheter was discontinued and the patient was able to void without difficulty. H and H was 10.8 and 32 and INR of 1.21 after 6 mg of Coumadin the night before. Pain was controlled again with oral pain medications. The patient was able to ambulate with the use of a rolling walker. On postop day #3, the patient's H and H was 10.7 and 31 and INR was 1.20 after 6 mg of Coumadin the night before. The patient's pain was well controlled and found to be stable for discharge. Throughout the hospital course, vital signs remained stable and the patient was afebrile. DISCHARGE CONDITION: Good. DISCHARGE MEDICATIONS: 1. Percocet 5/325. 2. Warfarin 2 mg tablets. 3. Colace 100 mg. Home medications: 1. Rapaflo 8 mg daily. 2. Fiber complete. 3. Vitamin D. 4. Multivitamin. 5. Fish oil. 6. Nubieber as needed. 7. Tagamet 200 mg twice daily as needed. 8. Gaviscon. 9. Calcium with vitamin D. 10. Stool softener. 11. MiraLAX. 12. Tylenol. DISCHARGE INSTRUCTIONS: 1. Weightbearing as tolerated. 2. Wound care: Okay to shower on postop day #3. No bathing, swimming, or submerging the wound. Use gentle soap and pat dry. Cover with gauze, Aleksander wrap or tape. Call orthopedic office for increased drainage, redness, increased pain or fever. Go to ER with shortness of breath or chest pain. 3. Diet: Regular diet. Increase fluids and fiber to prevent constipation. Continue to use stool softeners. Call office if no bowel motion within 48 hours. 4. Continue physical therapy and occupational therapy exercises as shown. 5. Visiting home nurses to do wound checks. 6. Visiting home nurses to draw blood for INR on Wednesday and . 7. Coumadin dosing, please note that you have been given 2 mg tablets. You will be provided with the dose instructions on Mondays and . If you do not receive dose instructions on dosing, please call our office straightaway. Please edna dosing instructions on your calender as they are provided to you. Dosin mg tonight, 6 mg on Wednesday, 8 mg on Wednesday. 8. Pain control with Percocet 5/325 four to six hours as needed for pain, maximum of 10 tabs per day. Please note that Percocet contains Tylenol. Maximum daily dose of Tylenol is 4 g from all sources. 9. Antibiotics required prior to any dental work. 10. Follow up with Dr. Luisa Aguirre within 10 to 14 days. Call for an appointment. 11. Please call our office with any questions or concerns at [phone]. 12. Medications sent to [facility] meds to beds inpatient pharmacy. JOHN DOBSON [id number]/[facility] #: [id number] [place]
== END 2017-12-17 12:15 | disposition home health service (06) | DRG 470 ==
LOC: AA 09:35 → SSU 17:20
PROVIDERS: ADMIT Orthopaedic Surgery Adult Reconstructive Orthopaedic Surgery; ATTEND Orthopaedic Surgery Adult Reconstructive Orthopaedic Surgery
PROC: 0SRC0J9 Replacement of Right Knee Joint with Synthetic Substitute, Cemented, Open Approach (ICD-10-PCS; principal; 2017-12-14 12:00)
DX: M17.11 Unilateral primary osteoarthritis, right knee (principal); N40.0 Benign prostatic hyperplasia without lower urinary tract symptoms; Z96.642 Presence of left artificial hip joint; M25.461 Effusion, right knee; G62.9 Polyneuropathy, unspecified; G47.33 Obstructive sleep apnea (adult) (pediatric); I45.10 Unspecified right bundle-branch block; I71.2 Thoracic aortic aneurysm, without rupture; R00.1 Bradycardia, unspecified; K21.9 Gastro-esophageal reflux disease without esophagitis; M25.761 Osteophyte, right knee; Z81.8 Family history of other mental and behavioral disorders; Z80.9 Family history of malignant neoplasm, unspecified; Z72.89 Other problems related to lifestyle; Z79.01 Long term (current) use of anticoagulants
CPT/HCPCS: 36415; 80048; 85014; 85018; 85049; 85610; 88305; 93005; A9270-GY; C1776; G8978-GP-CL; G8979-GP-CJ; G8980-GP-CJ; G8987-GO-CJ; G8988-GO-CJ; G8989-GO-CJ; J0690; J1100; J1650; J1885; J2250; J2405; J2704; J2795; J3010

== ENCOUNTER 2018-11-24 10:48 | Emergency (ER) | payer MEDICARE, BC ==
[2018-11-24 11:22] VITALS: BP 110/60
[2018-11-24] MEDS ORDERED: Tetan/Diph/Pertus SYR(Tdap)* 0.5 ML SYR(BOOSTRIX) use SYR IM ONE (11:30)
--- NOTE | 2018-11-24 11:36 | ED ---
Lower Extremity - HPI Summary HPI Summary: 83 yr old male with bilateral knee pain. He has kneeling, and stumbled getting up, and scrapped his left knee on concrete. He is not sure of his last tetanus shot. Pain is mild 2/10 in both knees, he is able to walk. He is worried about his right knee due to prior knee replacement a year ago. His injury occurred today prior to coming in here. - History of Current Complaint Chief Complaint: UCLowerExtremity Stated Complaint: SP FALL-BI LAT KNEE PAIN Time Seen by Provider: 11/24/18 11:23 Pain Intensity: 2 - Allergies/Home Medications Allergies/Adverse Reactions: Allergies Allergy/AdvReac Type Severity Reaction Status Date / Time No Known Allergies Allergy Verified 12/14/17 11:47 Home Medications: Home Medications Calcium Carbonate/Vitamin D3 [Calcium 1,000 + D3 Caplet] 1 tab PO DAILY [History Confirmed 11/24/18] Burtrum-3/Dha/Epa/Fish Oil [Burtrum 3 500 Softgel] 1 cap PO DAILY 11/24/18 [History Confirmed 11/24/18] PMH/Surg Hx/FS Hx/Imm Hx Endocrine/Hematology History: Denies: Hx Bone Marrow Disease, Hx Diabetes, Hx Sickle Cell Disease, Hx Anemia Cardiovascular History: Reports: Other Cardiovascular Problems/Disorders - Bradycardia-Dr Margie Agrawal MD, [place]- Currently wearing a holtor monitor Denies: Hx Hypertension, Hx Pacemaker/ICD Respiratory History: Reports: Hx Sleep Apnea Denies: Hx Chronic Obstructive Pulmonary Disease (COPD), Other Respiratory Problems/Disorders GI History: Reports: Hx Gastroesophageal Reflux Disease - PRN MEDS, Hx Ulcer - ? ?, Other GI Disorders - OCCASIONAL CONSTIPATION History: Reports: Other Problems/Disorders - ENLARGE PROSTATE Denies: Hx Dialysis Musculoskeletal History: Reports: Hx Arthritis - DX THIS spring, Other Musculoskeletal History - PAINS MOSTLY IN LEFT KNEE AND THIGH Sensory History: Reports: Hx Cataracts - BILATERAL, Hx Contacts or Glasses - GLASSES Denies: Hx Hearing Aid Opthamlomology History: Reports: Hx Cataracts - BILATERAL, Hx Contacts or Glasses - GLASSES Neurological History: Denies: Hx Dementia, Hx Seizures, Other Neuro Impairments/Disorders Psychiatric History: Denies: Other Psychiatric Issues/Disorders - Surgical History Surgery Procedure, Year, and Place: LEFT QUADICEP SX--APPROX 2003 Hx Anesthesia Reactions: No Infectious Disease History: No Infectious Disease History: Denies: History Other Infectious Disease, Traveled Outside the [place] in Last 30 Days - Family History Known Family History: Positive: None - Social History Alcohol Use: Rare Alcohol Amount: 12 OZ WEEKLY AT THE MOST Substance Use Type: Reports: None Smoking Status (MU): Never Smoked Tobacco Review of Systems Constitutional: Negative Positive: Other - bilateral knee pain after mild fall when getting up off his knees. Positive: Other - abrasion left knee All Other Systems Reviewed And Are Negative: Yes Physical Exam Triage Information Reviewed: Yes Vital Signs On Initial Exam: Initial Vitals Temp Pulse Resp BP Pulse Ox 97.2 F 50 18 110/60 97 11/24/18 11:18 11/24/18 11:18 11/24/18 11:18 11/24/18 11:18 11/24/18 11:18 Vital Signs Reviewed: Yes Appearance: Positive: Well-Appearing, No Pain Distress Skin: Positive: Other - abrasion superficial left knee Head/Face: Positive: Normal Head/Face Inspection Eyes: Positive: EOMI ENT: Positive: Normal ENT inspection Neck: Positive: Nontender Respiratory/Lung Sounds: Positive: Clear to Auscultation, Breath Sounds Present Cardiovascular: Positive: RRR Abdomen Description: Negative: Distended Musculoskeletal: Positive: Strength/ROM Intact, Other - abrasion left knee Neurological: Positive: Sensory/Motor Intact, Alert, Oriented to Person Place, Time, CN Intact II-III Psychiatric: Positive: Normal Diagnostics - Vital Signs Vital Signs Temp Pulse Resp BP Pulse Ox 11/24/18 11:18 97.2 F 50 18 110/60 97 - Laboratory Lab Statement: Any lab studies that have been ordered have been reviewed, and results considered in the medical decision making process. - Radiology left/right knees Radiology Interpretation Completed By: Radiologist - no fx Lower Extremity Course/Dx - Course Course Of Treatment: 83 yr old male with abrasion to the left knee. Plan DC home. - Diagnoses Provider Diagnoses: Left knee pain, Right knee pain, Abrasion, left knee, initial encounter Discharge - Sign-Out/Discharge Documenting (check all that apply): Patient Departure All imaging exams completed and their final reports reviewed: Yes - Discharge Plan Condition: Good Disposition: HOME Patient Education Materials: Knee Pain (ED), Abrasion (ED) Referrals: Vahe Park MD [Primary Care Provider] - 3 Days - Billing Disposition and Condition Condition: GOOD Disposition: Home
== END 2018-11-24 12:27 | disposition home or self-care (01) ==
LOC: UCCORT 10:48
DX: M25.562 Pain in left knee (principal); M25.561 Pain in right knee; S80.212A Abrasion, left knee, initial encounter; W01.0XXA Fall on same level from slipping, tripping and stumbling without subsequent striking against object, initial encounter; Y92.9 Unspecified place or not applicable; M17.12 Unilateral primary osteoarthritis, left knee; K21.9 Gastro-esophageal reflux disease without esophagitis; Z96.651 Presence of right artificial knee joint
CPT/HCPCS: 90471; 90715; 99212; G0463

== ENCOUNTER 2019-03-18 19:19 | Emergency (ER) | payer MEDICARE, BC ==
--- OUTSIDE RECORDS SUMMARY | 2019-03-18 19:33 | XMS REPORT | Continuity of Care Document ---
:1935 External Reference #:[id number] Author Name Luisa Aguirre M.D. (transmitted by agent of provider Marsha Powell) Address [address] [place] [address] Care Team Providers Name Role Phone Vahe Park MD - Internal Medicine Care Team Information Support Services Tech Problems Active Problems Provider Date Localized, primary osteoarthritis Luisa Aguirre M.D. Onset: 10/23/2015 Localized, primary osteoarthritis of the pelvic Luisa Aguirre M.D. Onset: region and thigh Prosthetic arthroplasty of the hip Luisa Aguirre M.D. Onset: 04/13/2016 Social History Type Date Description Comments Sex Unknown ETOH Use Drinks 1 Alcoholic Beverage Per Week Tobacco Use Start: Unknown Patient has never smoked Recreational Drug Use Denies Drug Use Smoking Status Reviewed: 02/08/19 Patient has never smoked Exercise Type/Frequency Exercises regularly Allergies, Adverse Reactions, Alerts Description No Known Drug Allergies Medications Active Medications SIG Qnty Indications Ordering Date Provider Colace 1 tab every 12 hours 90caps Luisa Aguirre, 12/16/2017 100mg as needed for M.D. Capsules constipation Amoxicillin take 4 pills, 2 g 1 4caps M25.552 Luisa Aguirre, 04/13/2016 500mg hour before dental M.D. Capsules or gi procedure Rapaflo 1 by mouth every day Unknown 8mg Capsules Fiber Complete 2 tabs daily. Unknown Tablets Vitamin D one a day as Unknown directed Fish Oil one daily Unknown Aleve by mouth once a day Unknown 220mg as needed Capsules Tagamet HB 1 tab by mouth twice Unknown 200mg a day as needed Tablets Gaviscon 4 tsp as needed Unknown Calcium 600+D High once a day Unknown Potency [id number] Tablets Stool Softener 1 capsule by mouth Unknown twice daily as needed Laxative Formula as needed Unknown Tablets Miralax 17 gm every day as Unknown [id number] needed Packet Tylenol 8 Hour 1 by mouth three Unknown times a day as 650mg Tablets ER needed for pain Finasteride 1 by mouth every day Unknown 5mg Tablets Medications Administered in Office Medication SIG Qnty Indications Ordering Provider Date Depomedrol 40MG Luisa Aguirre M.D. 07/21/2017 Injection Synvisc Or Synvisc-One Injection 1 Tiomthy Mcneill MD 01/21/2016 MG Injection Synvisc Or Synvisc-One Injection 1 Timothy Mcneill MD 01/15/2016 MG Injection Synvisc Or Synvisc-One Injection 1 Timothy Mcneill MD 01/08/2016 MG Injection Depomedrol 40MG Luisa Aguirre M.D. 10/23/2015 Injection Immunizations Description No Information Available Vital Signs Date Vital Result Comment 02/08/2019 10:45am Height 70 inches 5'10" Weight 228.00 lb Heart Rate 56 /min BP Systolic 108 mmHg BP Diastolic 68 mmHg Respiratory Rate 18 /min Body Temperature 97.7 F Pain Level 0 BMI (Body Mass Index) 32.7 kg/m2 01/27/2019 10:02am Height 70 inches 5'10" Weight 230.00 lb BP Systolic 110 mmHg BP Diastolic 66 mmHg Body Temperature 98.1 F BMI (Body Mass Index) 33.0 kg/m2 Results Description No Information Available Procedures Description No Information Available Medical Devices Description No Information Available Encounters Type Date Location Provider Dx Diagnosis Office Visit 01/27/2019 [facility] Kameron Burt, Sandy76.62 Achilles 10:00a at [place] tendinitis, left leg Assessments Date Code Description Provider 02/08/2019 M25.561 Pain in right knee Luisa Aguirre M.D. 02/08/2019 Z96.651 Presence of right artificial knee joint Luisa Aguirre M.D. 02/08/2019 M76.62 Achilles tendinitis, left leg Luisa Aguirre M.D. 02/08/2019 W19.xxxA Unspecified fall, initial encounter Luisa Aguirre M.D. 01/27/2019 M76.62 Achilles tendinitis, left leg Kameron Burt MD Plan of Treatment Future Appointment(s):03/31/2019 10:15 am - Kameron Burt MD at [facility] at [facility]/08/2019 - Luisa Aguirre M.D.M25.561 Pain in right kneeNew Xrays:Kneeright 4+ VWS, Ordered: 02/08/19Follow up:Follow up: 2 yrsZ96.651 Presence of right artificial knee jveftE27.62 Achilles tendinitis, left legW19.xxxA Unspecified fall, initial encounter Functional Status Description No Information Available Mental Status Description No Information Available Referrals Description No Information Available
--- OUTSIDE RECORDS SUMMARY | 2019-03-18 19:33 | XMS REPORT | Continuity of Care Document ---
:1935 External Reference #:[id number] Author Name Kameron Burt MD (transmitted by agent of provider Coco Bonilla) Address [address] [place] [id number] Care Team Providers Name Role Phone Vahe Park MD - Internal Medicine Care Team Information Grill Cook [phone] Problems Active Problems Provider Date Localized, primary [...] Use Denies Drug Use Smoking Status Reviewed: 01/27/19 Patient has never smoked Exercise Type/Frequency Exercises [...] 600+D High once a day Unknown Potency [id number] Tablets Stool Softener 1 capsule by mouth [...] 07/21/2017 Injection Synvisc Or Synvisc-One Injection 1 Timothy Mcneill MD 01/21/2016 MG Injection Synvisc Or Synvisc-One Injection 1 Timothy Mcneill MD 01/15/2016 MG Injection Synvisc Or Synvisc-One Injection 1 Timothy Mcneill MD 01/08/2016 MG Injection Depomedrol 40MG Luisa Aguirre M.D. 10/23/2015 Injection Immunizations Description No Information Available Vital Signs Date Vital Result Comment 01/27/2019 10:02am Height 70 inches 5'10" Weight 230.00 lb BP Systolic 110 mmHg BP Diastolic 66 mmHg Body Temperature 98.1 F BMI (Body Mass Index) 33.0 kg/m2 03/02/2018 10:18am Height 70 inches 5'10" Heart Rate 60 /min BP Systolic 118 mmHg BP Diastolic 68 mmHg Body Temperature 97.1 F Pain Level 0 Results Description No Information Available Procedures Description No Information Available Medical Devices Description No Information Available Encounters Description No Information Available Assessments Date Code Description Provider 01/27/2019 M76.62 Achilles tendinitis, left leg Kameron Burt MD Plan of Treatment Future Appointment(s):03/31/2019 10:15 am - Kameron Burt MD at [facility].02/08/2019 10:00 am - Luisa Aguirre M.D. at [facility].01/27/2019 - Kameron Burt MDM76.62 Achilles tendinitis, left legNew Xrays:Ankle Left 2 VWS, Ordered: 01/27/19New Therapy:Physical TherapyFollow up:2 months Also needs appt with Dr. Aguirre for right knee f/u Functional Status Description No Information Available Mental Status Description No Information Available Referrals Description No Information Available
--- OUTSIDE RECORDS SUMMARY | 2019-03-18 19:33 | XMS REPORT | Continuity of Care Document ---
:1935 External Reference #:[id number] Author Name Aida Jewell Problems Active Problems Provider Date Mitral valve disorder Vahe Park MD Onset: 06/01/2011 Obesity Vahe Park MD Onset: 06/01/2011 Sleep apnea Vahe Park MD Onset: 06/01/2011 Benign prostatic hypertrophy with outflow obstruction Vahe Park MD Onset: Sleep dysfunction with arousal disturbance Vahe Park MD Onset: 06/01/2011 Tinnitus Vahe Park MD Onset: 06/01/2011 Social History Type Date Description Comments Sex Unknown Tobacco Use Start: Unknown Denies Smoking ETOH Use Occasionally consumes alcohol Tobacco Use Start: Unknown Patient has never smoked Smoking Status Reviewed: 05/20/17 Patient has never smoked Allergies, Adverse Reactions, Alerts Active Allergies Reaction Severity Comments Date Gluten 09/22/2010 Medications Active Medications SIG Qnty Indications Ordering Date Provider Tylenol 2 by mouth as needed Vahe Park MD 10/20/2018 325mg Tablets Tagamet HB 1 tab po qd 90tadinesh Park MD 12/04/2014 200mg Tablets [employer] on qam off qhs Dx of 2Pair Vahe Park MD 11/06/2014 30-40MMHG/Knee vebnous High/Closed insufficiency and Toe/Large edema Misc Vitamin D-1000 as directed. 100tadinesh Park MD 06/01/2011 1000Unit Tablets Fish Oil 1 PO daily 100caps Vahe Park MD 10/09/2008 300mg Capsules Multivitamins Vahe Park MD 04/28/2005 Caplets Calcium With D 1 PO bid Vahe Park MD 04/28/2005 600mg Tablets Rapaflo Unknown 8mg Capsules Colace 1 by mouth twice a Unknown 100mg Capsules day Fiber Complete 2 by mouth once Unknown daily Tablets Finasteride 1 by mouth every day Unknown 5mg Tablets Medications Administered in Office Medication SIG Qnty Indications Ordering Provider Date H1N1 Administration-Use Vahe Park MD 03/25/2009 Injection Immunizations CPT Code Status Date Vaccine Lot # [id number] Given 02/06/2019 Influenza Virus (Afluria) Split Virus 3 Years Of Age And Older [id number] Given 02/06/2019 Influenza Virus (Afluria) Split Virus 3 Years [id number] Of Age And Older 01379 Given 10/20/2018 Tetanus,Diphtheria,Adut/Adol Pertussis [id number] Given 10/20/2018 Tetanus,Diphtheria,Adut/Adol Pertussis Q2035 Given 01/28/2018 Influenza Virus (Afluria) Split Virus 3 Years Of Age And Older [id number] Given 01/28/2018 Influenza Virus (Afluria) Split Virus 3 Years [id number] Of Age And Older Q2035 Given 01/14/2017 Influenza Virus (Afluria) Split Virus 3 Years Of Age And Older [id number] Given 01/14/2017 Influenza Virus (Afluria) Split Virus 3 Years [id number] Of Age And Older Q2037 Given 01/30/2016 Influenza Vaccine (Fluvirin) 3 Years Of Age Or [id number] Older Q2035 Given 02/07/2015 Influenza Virus (Afluria) Split Virus 3 Years [id number] Of Age And Older 34298 Given 08/29/2014 Pneumococcal Conjugate Vaccine 13 Valent For [id number] Intramuscular Use Q2037 Given 01/17/2014 Influenza Vaccine (Fluvirin) 3 Years Of Age Or [id number] Older Q2037 Given 06/16/2013 Influenza Vaccine (Fluvirin) 3 Years Of Age Or Older 41251 Given 06/16/2013 Influenza Virus Vaccine (History Only) [id number] Q2036 Given 02/10/2013 Flulaval [id number] Q2036 Given 02/10/2013 Flulaval Q2037 Given 01/13/2012 Influenza Vaccine (Fluvirin) 3 Years Of Age Or [id number] Older Q2036 Given 01/18/2011 Flulaval [id number] 85110 Given 04/25/2009 Pneumovax Polyvalent Inj Im [id number] 43155 Given 03/28/2009 H1N1 Administration 88062 Given 02/15/2009 Zostavax 27512 Given 01/16/2009 Tetanus,Diphtheria,Adut/Adol Pertussis [id number] 11190 Given 01/16/2009 Influenza Vaccine [id number] 21426 Given 05/08/2008 Hepatitis A Vaccine [id number] 72137 Given 02/16/2008 Influenza Vaccine [id number] 67990 Given 02/03/2007 Influenza Vaccine 81633 Given 02/03/2007 Influenza Vaccine [id number] 07634 Given 07/09/2003 Pneumovax Polyvalent Inj Im [id number] 28451 Given 06/10/2002 Tetanus And Diptheria Toxiods [id number] Vital Signs Date Vital Result Comment 02/06/2019 1:41pm BP Systolic 110 mmHg BP Diastolic 68 mmHg Heart Rate 52 /min Height 67 inches 5'7" Weight 222.00 lb BMI (Body Mass Index) 34.8 kg/m2 O2 % BldC Oximetry 96 % 10/20/2018 8:40am BP Systolic 112 mmHg BP Diastolic 64 mmHg Heart Rate 59 /min Height 67 inches 5'7" Weight 228.00 lb BMI (Body Mass Index) 35.7 kg/m2 O2 % BldC Oximetry 96 % Results Test Date Facility Test Result H/L Range Note General Health 01/24/2019 [facility] Thyroid Stim 2.35 uIU/mL Normal 0.30-4.20 1 Panel [facility] [address] [place] [address] [phone] Free T4 0.88 ng/dL Normal 0.76-1.46 .CBC W/Auto 01/24/2019 [facility] White Blood 5.9 K/ uL Normal 3.4-10.[address] [place] [address] [phone] Red Blood Count 4.16 M/uL Low 4.20-5.80 Hemoglobin 12.9 gm/dL Normal 12.8-17.0 Hematocrit 37.4 % Low 38.0-48.0 Mean Cell Volume 89.9 fl Normal 80.0-96.0 Mean Corpuscular HGB 31.0 pg Normal 27.0-33.0 Mean Corpuscular HGB Conc 34.5 g/dL Normal 31.7-36.0 Platelet Count 202 K/uL Normal 155-360 Red Cell Distri Width SD 42.8 fl Normal 36-51 Red Cell Distri Width %CV 13.0 % Normal 11.6-15.8 Mean Platelet Volume 10.9 fl High 6.6-10.6 Neut% 59.0 % Normal 33.0-73.0 Lymph % 27.3 % Normal 20.0-42.0 Chaves % 10.2 % High 0.0-10.0 Eo% 2.7 % Normal 0.0-6.6 Bas% 0.5 % Normal 0.0-1.1 Immature Grans 0.3 % Normal 0.0-5.0 NRBC % 0.0 /100WBC < 10/ 100 WBC Neut# 3.45 K/uL Normal 1.8-7.0 Lymph # 1.60 K/uL Normal 1.0-4.0 Chaves # 0.60 K/uL Normal 0.0-0.8 Eos # 0.16 K/uL Normal 0.0-0.5 Baso # 0.03 K/uL Normal 0.0-0.1 Immature Grans Absolute 0.02 K/uL NRBC # 0.00 K/uL Comprehensive 01/24/2019 [facility] Glucose 103 mg/ dL Normal 74-106 Metabolic Panel [address] [place], [place] [id number] [phone] BUN 19 mg/dL High 7-18 Creatinine 1.0 mg/dL Normal 0.6-1.3 Glom Filtration Rate, Estimate >60 mL/min >60 If >60 mL/min >60 2 BUN/Creat 19.0 ratio Sodium 140 mmol/L Normal 136-145 Potassium 4.3 mmol/L Normal 3.5-5.1 Chloride 109 mmol/L High 98-107 Carbon Dioxide 25 mmol/L Normal 21-32 Anion Gap 6 mEq/L Low 8-16 Calcium 8.4 mg/dL Low 8.5-10.1 Total Protein 6.2 g/dL Low 6.4-8.2 Albumin 3.2 g/dL Low 3.4-5.0 Globulin 3.0 g/dL Normal 1.9-4.3 Alb/Glob 1.1 ratio Bilirubin,Total 0.7 mg/dL Normal 0.2-1.0 Sgot/Ast 22 U/L Normal 15-37 SGPT/Alt 27 U/L Normal 12-78 Alkaline Phosphatase 61 U/L Normal 45-117 General 10/11/2018 [facility] Thyroid Stim 1.04 uIU/ mL Normal 0.30-4.20 3 Health Panel [address] [place] [address] [phone] Free T4 0.85 ng/dL Normal 0.76-1.46 .CBC W/Auto 10/11/2018 [facility] White Blood 5.7 K/ uL Normal 3.4-10.[address] [place] [address] [phone] Red Blood Count 4.19 M/uL Low 4.20-5.80 Hemoglobin 12.7 gm/dL Low 12.8-17.0 Hematocrit 38.2 % Normal 38.0-48.0 Mean Cell Volume 91.2 fl Normal 80.0-96.0 Mean Corpuscular HGB 30.3 pg Normal 27.0-33.0 Mean Corpuscular HGB Conc 33.2 g/dL Normal 31.7-36.0 Platelet Count 201 K/uL Normal 155-360 Red Cell Distri Width SD 46.0 fl Normal 36-51 Red Cell Distri Width %CV 13.7 % Normal 11.6-15.8 Mean Platelet Volume 10.8 fl High 6.6-10.6 Neut% 66.4 % Normal 33.0-73.0 Lymph % 21.8 % Normal 20.0-42.0 Chaves % 8.6 % Normal 0.0-10.0 Eo% 2.1 % Normal 0.0-6.6 Bas% 0.7 % Normal 0.0-1.1 Immature Grans 0.4 % Normal 0.0-5.0 NRBC % 0.0 /100WBC < 10/ 100 WBC Neut# 3.78 K/uL Normal 1.8-7.0 Lymph # 1.24 K/uL Normal 1.0-4.0 Chaves # 0.49 K/uL Normal 0.0-0.8 Eos # 0.12 K/uL Normal 0.0-0.5 Baso # 0.04 K/uL Normal 0.0-0.1 Immature Grans Absolute 0.02 K/uL NRBC # 0.00 K/uL Laboratory test 10/11/2018 [facility] Prostate 0.77 < 4.0 [address] Specific ng/[place] [address] Antigen [phone] Comprehensive 10/11/2018 [facility] Glucose 88 mg/dL Normal 74-106 Metabolic Panel [address] [place] [address] [phone] BUN 17 mg/dL Normal 7-18 Creatinine 0.9 mg/dL Normal 0.6-1.3 Glom Filtration Rate, Estimate >60 mL/min >60 If >60 mL/min >60 5 BUN/Creat 18.8 ratio Sodium 140 mmol/L Normal 136-145 Potassium 4.1 mmol/L Normal 3.5-5.1 Chloride 109 mmol/L High 98-107 Carbon Dioxide 25 mmol/L Normal 21-32 Anion Gap 6 mEq/L Low 8-16 Calcium 8.6 mg/dL Normal 8.5-10.1 Total Protein 6.2 g/dL Low 6.4-8.2 Albumin 3.3 g/dL Low 3.4-5.0 Globulin 2.9 g/dL Normal 1.9-4.3 Alb/Glob 1.1 ratio Bilirubin,Total 0.8 mg/dL Normal 0.2-1.0 Sgot/Ast 22 U/L Normal 15-37 SGPT/Alt 27 U/L Normal 12-78 Alkaline Phosphatase 62 U/L Normal 45-117 1 J44.9 I73.9 E11.9 2 Note: Persistent reduction for 3 months or more in an eGFR <60 mL/min/1.73 m2 defines CKD. Patients with eGFR values >/=60 mL/min/1.73 m2 may also have CKD if evidence of persistent proteinuria is present. The original MDRD equation for estimated GFR is not valid for patients less than 18 years of age. Additional information may be found at www.kdoqi.org. 3 R23.9 4 THIS ASSAY IS NOT INTENDED A CANCER SCREENING TEST The concentration of PSA in a given specimen, determined with assays from different manufacturers, can vary due to differences in assay methods and reagent specificity. Values obtained from different assay methods cannot be used interchangeably. Method: Siemens [employer] [place] Chemiluminescent immunoassay. 5 Note: Persistent reduction for 3 months or more in an eGFR <60 mL/min/1.73 m2 defines CKD. Patients with eGFR values >/=60 mL/min/1.73 m2 may also have CKD if evidence of persistent proteinuria is present. The original MDRD equation for estimated GFR is not valid for patients less than 18 years of age. Additional information may be found at www.kdoqi.org. 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 without heart failure M76.62 Achilles tendinitis, left leg Z23 Encounter for immunization Office Visit 10/20/2018 8:30a Main Office Vahe Park MD R23.9 Unspecified skin changes M15.9 Polyosteoarthritis, unspecified I11.9 Hypertensive heart disease without heart failure I34.0 Nonrheumatic mitral (valve) insufficiency R00.1 Bradycardia, unspecified Z00.00 Encntr for general adult medical exam w/o abnormal findings Z23 Encounter for immunization Office Visit 09/05/2018 12:00p Main Office Vahe Park MD R23.9 Unspecified skin changes M15.9 Polyosteoarthritis, unspecified I11.9 Hypertensive heart disease without heart failure Assessments Date Code Description Provider 02/06/2019 M15.9 Polyosteoarthritis, unspecified Vahe Park MD 02/06/2019 I11.9 Hypertensive heart disease without heart failure Vahe Park MD 02/06/2019 M76.62 Achilles tendinitis, left leg Vahe Park MD 02/06/2019 Z23 Encounter for immunization Vahe Park MD 10/20/2018 R23.Giacomo Unspecified skin changes Vahe Park MD 10/20/2018 M15.Giacomo Polyosteoarthritis, unspecified Vahe Park MD 10/20/2018 I11.9 Hypertensive heart disease without heart failure Vahe Park MD 10/20/2018 I34.0 Nonrheumatic mitral (valve) insufficiency Vahe Park MD 10/20/2018 R00.1 Bradycardia, unspecified Vahe Park MD 10/20/2018 Z00.00 Encounter for general adult medical examination Vahe Park MD without abnormal findings 10/20/2018 Z23 Encounter for immunization Vahe Park MD 10/11/2018 E78.2 Mixed hyperlipidemia Vahe Park MD 09/05/2018 R23.9 Unspecified skin changes Vahe Park MD 09/05/2018 M15.9 Polyosteoarthritis, unspecified Vahe Park MD 09/05/2018 I11.9 Hypertensive heart disease without heart failure Vahe Park MD Plan of Treatment Future Appointment(s):02/21/2019 9:15 am - Nurse at Main Cermkz1105/05/2019 8: 30 am - Nurse at Main Injsju7605/15/2019 2:15 pm - Vahe Park MD at Main Office Functional Status Description No Information Available Mental Status Description No Information Available Referrals Description No Information Available
--- OUTSIDE RECORDS SUMMARY | 2019-03-18 19:33 | XMS REPORT | Continuity of Care Document ---
:1935 External Reference #:[id number] Author Name Vahe Park MD (transmitted by agent of provider Apurva Monsalve) Address [address] [place] [address] Problems Active Problems Provider Date Mitral valve [...] needed Vahe Park MD 10/20/2018 325mg Tablets Amoxicillin Tab 4 1/2 Hour 4craimundo Park MD 04/06/2018 500mg Before Dental Capsules Procedure Tagamet HB 1 tab po qd 90tabs Vahe Park MD 12/04/2014 200mg Tablets Jobst For Men on qam off qhs Dx of 2Pair Vahe Park MD 11/06/2014 30-40MMHG/Knee vebnous High/Closed insufficiency and Toe/Large edema Misc Vitamin D-1000 as directed. 100tabs Vahe Park MD 06/01/2011 1000Unit Tablets Fish Oil [...] CPT Code Status Date Vaccine Lot # [id number] Given 10/20/2018 Tetanus,Diphtheria,Adut/Adol Pertussis [id number] Given 10/20/2018 Tetanus,Diphtheria,Adut/Adol Pertussis Q2035 Given 01/28/2018 Influenza Virus (Afluria) Split Virus 3 Years Of Age And Older Q2035 Given 01/28/2018 Influenza Virus (Afluria) Split Virus 3 Years [id number] Of Age And Older Q2035 Given 01/14/2017 Influenza Virus (Afluria) Split Virus 3 Years Of Age And Older Q2035 Given 01/14/2017 Influenza Virus (Afluria) Split Virus 3 Years [id number] Of Age And Older Q2037 Given 01/30/2016 Influenza Vaccine (Fluvirin) 3 Years Of Age Or [id number] Older Q2035 Given 02/07/2015 Influenza Virus (Afluria) Split Virus 3 Years [id number] Of Age And Older 30678 Given 08/29/2014 Pneumococcal Conjugate Vaccine 13 Valent For [id number] Intramuscular Use Q2037 Given 01/17/2014 Influenza Vaccine (Fluvirin) 3 Years Of Age Or [id number] Older Q2037 Given 06/16/2013 Influenza Vaccine (Fluvirin) 3 Years Of Age Or Older 62625 Given 06/16/2013 Influenza Virus Vaccine (History Only) [id number] Q2036 Given 02/10/2013 Flulaval [id number] Q2036 Given 02/10/2013 Flulaval Q2037 Given 01/13/2012 Influenza Vaccine (Fluvirin) 3 Years Of Age Or [id number] Older Q2036 Given 01/18/2011 Flulaval [id number] 25862 Given 04/25/2009 Pneumovax Polyvalent Inj Im [id number] 24985 Given 03/28/2009 H1N1 Administration 96581 Given 02/15/2009 Zostavax 38911 Given 01/16/2009 Tetanus,Diphtheria,Adut/Adol Pertussis [id number] 00285 Given 01/16/2009 Influenza Vaccine [id number] 41219 Given 05/08/2008 Hepatitis A Vaccine [id number] 13142 Given 02/16/2008 Influenza Vaccine [id number] 05200 Given 02/03/2007 Influenza Vaccine 25079 Given 02/03/2007 Influenza Vaccine [id number] 53295 Given 07/09/2003 Pneumovax Polyvalent Inj Im [id number] 39946 Given 06/10/2002 Tetanus And Diptheria Toxiods [id number] Vital Signs Date Vital Result Comment 10/20/2018 8:40am BP Systolic 112 mmHg BP Diastolic 64 mmHg Heart Rate 59 /min Height 67 inches 5'7" Weight 228.00 lb BMI (Body Mass Index) 35.7 kg/m2 O2 % BldC Oximetry 96 % 09/05/2018 3:03pm BP Systolic 120 mmHg BP Diastolic 70 mmHg Height 67 inches 5'7" Weight 222.00 lb BMI (Body Mass Index) 34.8 kg/m2 Results Test Date Facility Test Result H/L Range Note General Health 01/24/2019 [facility] Thyroid Stim 2.35 uIU/mL Normal 0.30-4.20 1 Panel [facility] [address] [place] [address] [phone] Free T4 0.88 ng/dL Normal 0.76-1.46 .CBC W/Auto 01/24/2019 [facility] White Blood 5.9 K/ uL Normal 3.4-10.[address] [place] [address] [phone] Red Blood Count 4.16 M/uL Low 4.20-5.80 [...] 33.0-73.0 Lymph % 27.3 % Normal 20.0-42.0 Finney % 10.2 % High 0.0-10.0 Eo% 2.7 % Normal 0.0-6.6 Bas% 0.5 % Normal 0.0-1.1 Immature Grans 0.3 % Normal 0.0-5.0 NRBC % 0.0 /100WBC < 10/ 100 WBC Neut# 3.45 K/uL Normal 1.8-7.0 Lymph # 1.60 K/uL Normal 1.0-4.0 Finney # 0.60 K/uL Normal 0.0-0.8 Eos # 0.16 K/uL Normal 0.0-0.5 Baso # 0.03 K/uL Normal 0.0-0.1 Immature Grans Absolute 0.02 K/uL NRBC # 0.00 K/uL Comprehensive 01/24/2019 [facility] Glucose 103 mg/ dL Normal 74-106 Metabolic Panel [address] [place], [place] [id number] [phone] BUN 19 mg/dL High 7-18 Creatinine 1.0 [...] Phosphatase 61 U/L Normal 45-117 General 10/11/2018 [facility] Thyroid Stim 1.04 uIU/ mL Normal 0.30-4.20 3 Health Panel [address] [facility]one [facility] [place], [place] [id number] [phone] Free T4 0.85 ng/dL Normal 0.76-1.46 .CBC W/Auto 10/11/2018 [facility] White Blood 5.7 K/ uL Normal 3.4-10.[address] Count [place], [place] [id number] [phone] Red Blood Count 4.19 M/uL Low 4.20-5.80 [...] 33.0-73.0 Lymph % 21.8 % Normal 20.0-42.0 Finney % 8.6 % Normal 0.0-10.0 Eo% 2.1 % Normal 0.0-6.6 Bas% 0.7 % Normal 0.0-1.1 Immature Grans 0.4 % Normal 0.0-5.0 NRBC % 0.0 /100WBC < 10/ 100 WBC Neut# 3.78 K/uL Normal 1.8-7.0 Lymph # 1.24 K/uL Normal 1.0-4.0 Finney # 0.49 K/uL Normal 0.0-0.8 Eos # 0.12 K/uL Normal 0.0-0.5 Baso # 0.04 K/uL Normal 0.0-0.1 Immature Grans Absolute 0.02 K/uL NRBC # 0.00 K/uL Laboratory test 10/11/2018 [facility] Prostate 0.77 < 4.0 [address] Specific ng/[place] [address] Antigen [phone] Comprehensive 10/11/2018 [facility] Glucose 88 mg/dL Normal 74-106 Metabolic Panel [address] [place] [address] [phone] BUN 17 mg/dL Normal 7-18 Creatinine 0.9 [...] assay methods cannot be used interchangeably. Method: Yorderta Chemiluminescent immunoassay. 5 Note: Persistent reduction for [...] [email or web address]. Procedures Date Code Description Status 10/11/2018 15183 EKG-Tracing & Report Completed 04/22/2017 [id number] Bone Mineral Density Test Completed 12/15/2012 [id number] Bone Mineral Density Test Completed 07/21/2010 [id number] Colonoscopy Completed Medical Devices Description No Information Available Encounters Type Date Location Provider Dx Diagnosis Office Visit 10/20/2018 8:30a Main Office Vahe [...] heart failure Assessments Date Code Description Provider 10/20/2018 R23.9 Unspecified skin changes Vahe Park MD 10/20/2018 M15.9 Polyosteoarthritis, unspecified Vahe Park MD 10/20/2018 I11.9 [...] Vahe Park MD Plan of Treatment Future Appointment(s):02/06/2019 1:30 pm - Vahe Park MD at Main Office Functional Status Description No Information Available Mental Status Description No Information Available Referrals Description No Information Available
[2019-03-18 20:06] VITALS: BP 125/63
--- NOTE | 2019-03-18 20:09 | UC ---
General HPI - HPI Summary HPI Summary: 84 yo gentleman presents c/o L lower ant rib pain s/p accidently hitting chest against metal portion of garbage can approx 18:30 today. Pt was reaching into the can to retrieve an item accidentally thrown out. Subsequently went to the hockey game, but since sx still present, and has hx rib injury in the past. No sob. No recent illness. No neck / back / GI sx. - History of Current Complaint Chief Complaint: UCGeneralIllness Stated Complaint: INJURY LEFT RIBS Time Seen by Provider: 03/18/19 20:09 Hx Obtained From: Patient Pain Intensity: 0 - Allergy/Home Medications Allergies/Adverse Reactions: Allergies Allergy/AdvReac Type Severity Reaction Status Date / Time No Known Allergies Allergy Verified 03/18/19 20:06 Home Medications: Home Medications Acetaminophen TAB* [Tylenol TAB*] 650 mg PO Q8H PRN 03/18/19 [History Confirmed 03/18/19] Docusate CAP* [Colace Cap*] 100 mg PO BID PRN 03/18/19 [History Confirmed ] PMH/Surg Hx/FS Hx/Imm Hx Previously Healthy: Yes - denies sign medical issues - Surgical History Surgical History: Yes Surgery Procedure, Year, and Place: LEFT QUADICEP SX--APPROX 2002. right knee. left hip - Family History Known Family History: Positive: None - Social History Alcohol Use: None Alcohol Amount: 12 OZ WEEKLY AT THE MOST Substance Use Type: None Smoking Status (MU): Never Smoked Tobacco - Immunization History Most Recent Influenza Vaccination: 01/2016 Most Recent Tetanus Shot: WITHIN 10 YEARS Most Recent Pneumonia Vaccination: IN THE PAST Review of Systems All Other Systems Reviewed And Are Negative: Yes Constitutional: Positive: Negative Skin: Positive: Negative Eyes: Positive: Negative ENT: Positive: Negative Respiratory: Positive: Other - see hpi Cardiovascular: Positive: Other - see hpi Gastrointestinal: Positive: Negative Genitourinary: Positive: Negative Motor: Positive: Other - see hpi Neurovascular: Positive: Negative Musculoskeletal: Positive: Other: - see hpi Neurological: Positive: Negative Psychological: Positive: Negative Is Patient Immunocompromised?: No Physical Exam Triage Information Reviewed: Yes Appearance: Well-Appearing, Well-Nourished Vital Signs: Initial Vital Signs Temp 97.8 F 03/18/19 20:00 Pulse 50 03/18/19 20:00 Resp 18 03/18/19 20:00 BP 125/63 03/18/19 20:00 Pulse Ox 98 03/18/19 20:00 Vital Signs Reviewed: Yes Eye Exam: Normal ENT Exam: Normal Neck exam: Other - supple for age, nontender, + clinical susp arthritic Respiratory Exam: Other - tender ant lat chest wall at approx R # 7 No crepitus , no eccymosis Respiratory: Positive: Lungs clear, Normal breath sounds, No respiratory distress, No accessory muscle use Cardiovascular Exam: Other - HR regular + syst murmur noted HR correlates with radial pulse Cardiovascular: Positive: Pulses Normal, Brisk Capillary Refill Abdominal Exam: Normal Abdomen Description: Positive: Nontender Musculoskeletal Exam: Normal - no acute issues, gait slow but steady Neurological Exam: Normal - grossly nonfocal Psychological Exam: Normal - nad, conversing easily and appropriately Skin Exam: Normal - nondiaphoretic no visible or reported rash no eccymosis Course/Dx - Course Course Of Treatment: Declines analgesic, citing he already took acetaminophen. Wishes to ambulate on his own to / from xray, citing he already went to the hockey game by himself. I discussed by xray reading with Mr. Hargrove. He is aware that this is preliminary only, the final reading will be completed in the am. Noted no isabel fx, but + arthritis, tortuous aorta, cardiomegaly (?). Reviewed with Mr. Hargrove the importance of f/u with PCP for recheck, but also to evaluate heart murmur (while this may not be new, he reports not being aware of it). Reviewed coa / tx plan. Questions as posed answered to the best of my ability. - Diagnoses Provider Diagnosis: Rib injury, Heart murmur Discharge ED - Sign-Out/Discharge Documenting (check all that apply): Patient Departure All imaging exams completed and their final reports reviewed: No - Discharge Plan Condition: Stable Disposition: HOME Patient Education Materials: Heart Murmur (ED), Rib Contusion (ED) Referrals: Vahe Park MD [Primary Care Provider] - Additional Instructions: Tylenol over the counter per packaging instructions as needed for pain. Please follow up with your primary care physician, this week if possible, for recheck. Please seek medical attention for worse or new problems. - Billing Disposition and Condition Condition: STABLE Disposition: Home
--- NOTE | 2019-03-19 07:25 | UC ---
- Progress Note Progress Note: [place] Bottom Maker: Navi Moran Daniel, ([id number]) Conservation Or Heritage Architect: JUAN ( NUANCE) Report Date: 03/18/2019 20:24:00 Report Status: Final ====== Start of Report Content Patient Name: JLUIS MCLAIN Medical Record#: [id number] Ordering Physician: Saniya Avelar MD Acct.#: [id number] : 1934 Age: 84 Sex: M Location: [facility] Exam Date: 03/18/192023 ADM Status: DEP ER Order Information: CHEST PA LAT 2 VWS Accession Number: [id number] CPT: 64893 HISTORY: left ant chest / rib pain s/p injury today COMPARISONS: December 01, 2017 VIEWS: 4: Frontal dual-energy and lateral views of the chest. FINDINGS: CARDIOMEDIASTINAL SILHOUETTE: The aorta is tortuous. The cardiac silhouette is mildly enlarged. The cardiomediastinal silhouette is otherwise unremarkable. CARLOS: The carlos are normal. PLEURA: The costophrenic angles are sharp. No pleural abnormalities are noted. LUNG PARENCHYMA: There is hyperinflation with flattening of the diaphragm and expansion of the AP diameter of the chest. ABDOMEN: The upper abdomen is clear. There is no subphrenic gas. BONES AND SOFT TISSUES: There is chronic posttraumatic deformity to the left hemithorax. Mild changes are noted. OTHER: None. IMPRESSION: CARDIOMEGALY WITH A TORTUOUS AORTA COPD R0 Preliminary Imaging Read R0 <Electronically signed by Navi Moran MD in OV> 03/19/1913 Dictated By: Navi Moran MD Dictated Date/Time: 03/19/19711 Transcribed Date/Time: 03/19/19711 Copy to: CC:Vahe Park MD; Saniya Avelar MD Imaging - [facility] Urgent [facility] [address] [facility] [address] [facility] [address] ph [phone]) ph [phone]) ph ([phone]) End of Report Content [place] Bottom Maker: Navi Moran Daniel, ([id number]) Conservation Or Heritage Architect: JUAN ( NUANCE) Report Date: 03/18/2019 20:24:00 Report Status: Final ====== Start of Report Content Patient Name: JLUIS MCLAIN Medical Record#: [id number] Ordering Physician: Saniya Avelar MD Acct.#: [id number] : 1934 Age: 84 Sex: M Location: [facility] Exam Date: 03/18/192023 ADM Status: DEP ER Order Information: RIBS LEFT UNILATERAL 2 VWS Accession Number: [id number] CPT: 48018 HISTORY: left ant chest / rib pain s/p injury today COMPARISONS: None relevant available at the time of dictation. VIEWS: 3, Frontal and oblique views of the left hemithorax. FINDINGS: There is callus formation consistent with chronic fractures of the left eighth, ninth, and 10th ribs. There is no acute displaced fracture. There is no pneumothorax. Degenerative changes are noted of the spine. IMPRESSION: NO ACUTE DISPLACED RIB FRACTURE OR PNEUMOTHORAX. R0 Preliminary Imaging Read R0 <Electronically signed by Navi Moran MD in OV> 03/19/19711 Dictated By: Navi Moran MD Dictated Date /Time: 03/19/19710 Transcribed Date/Time: 03/19/19710 Copy to: CC:Vahe Park MD; Saniya Avelar MD Imaging - [facility] Imaging - [facility] Imaging - [facility] [address] [place] [address] [address] [address] ph [phone]) ph ) [phone]) End of Report Content Course/Dx - Diagnoses Provider Diagnoses: Rib injury, Heart murmur Discharge ED - Sign-Out/Discharge Documenting (check all that apply): Post-Discharge Follow Up All imaging exams completed and their final reports reviewed: Yes - Discharge Plan Condition: Stable Disposition: HOME Patient Education Materials: Heart Murmur (ED), Rib Contusion (ED) Referrals: Vahe Park MD [Primary Care Provider] - Additional Instructions: Tylenol over the counter per packaging instructions as needed for pain. Please follow up with your primary care physician, this week if possible, for recheck. Please seek medical attention for worse or new problems. - Billing Disposition and Condition Condition: STABLE Disposition: Home
== END 2019-03-18 21:11 | disposition home or self-care (01) ==
LOC: UCCORT 19:19
DX: S29.9XXA Unspecified injury of thorax, initial encounter (principal); W22.8XXA Striking against or struck by other objects, initial encounter; Y93.89 Activity, other specified; Y92.9 Unspecified place or not applicable; R01.1 Cardiac murmur, unspecified; I51.7 Cardiomegaly; Q25.46 Tortuous aortic arch; J44.9 Chronic obstructive pulmonary disease, unspecified
CPT/HCPCS: 71046; 99212; G0463